=== PATIENT | female | born 1980 | race African-American/Black ===

== ENCOUNTER 2025-02-13 16:29 | Emergency (ER) | payer MEDICAID ==
[~2025-02-13] VITALS: Ht 172.7 cm; Wt 80.0 kg
[2025-02-13 16:35] VITALS: O2SAT 100
[2025-02-13] MEDS: LIDOCAINE 5% PATCH TOP SCH (18:30)
[2025-02-13] MEDS: ACETAMINOPHEN 325MG TABLET PO ONE (18:30)
[2025-02-13] MEDS: DEXAMETHASONE 4MG TABLET PO ONE (18:30)
[2025-02-13 18:56] LABS: CLARITY URINE CLEAR (CLEAR); COLOR URINE YELLOW (YELLOW); GLUCOSE URINE NEGATIVE (NEGATIVE); KETONES URINE NEGATIVE (NEGATIVE); LEUKOCYTE ESTERASE URINE NEGATIVE (NEGATIVE); NITRITE URINE NEGATIVE (NEGATIVE); OCCULT BLOOD URINE NEGATIVE (NEGATIVE); PH URINE 6.5 (4.5-8.0); PROTEIN URINE NEGATIVE (NEGATIVE); SPECIFIC GRAVITY URINE 1.013 (1.005-1.030); UROBILINOGEN URINE 0.2 E.U./dL (0.2-1.0)
[2025-02-13] MEDS ORDERED: LIDO-53 TP (19:40)
[2025-02-13] MEDS ORDERED: CYCL10TA21 MT (19:40)
[2025-02-13 20:00] VITALS: PULSE 79; TEMP 36.9; O2SAT 98
[2025-02-13 20:21] VITALS: BP 230/132; RESP 15
[2025-02-13] MEDS: AMLODIPINE 5MG TABLET PO ONE (20:21)
== END 2025-02-13 20:30 | disposition home or self-care (01) ==
LOC: ER 16:29
DX: M54.10 Radiculopathy, site unspecified (principal); I10 Essential (primary) hypertension; E11.9 Type 2 diabetes mellitus without complications; Z88.0 Allergy status to penicillin
CPT/HCPCS: 99284; 81003; 81025; J8540